=== PATIENT | female | born 1985 | race Caucasian/White ===

== ENCOUNTER 2016-10-05 08:48 | Emergency (ER) | payer MEDICAID ==
[~2016-10-05] VITALS: Ht 177.8 cm; Wt 126.5 kg
[2016-10-05 08:49] VITALS: BP 135/76
== END 2016-10-05 09:34 | disposition home or self-care (01) ==
LOC: ED 09:23
DX: K02.9 Dental caries, unspecified (principal); K08.89 Other specified disorders of teeth and supporting structures
CPT/HCPCS: 99283